=== PATIENT | male | born 2000 | race Caucasian/White ===

== ENCOUNTER 2022-05-08 14:50 | Emergency (ER) | payer OTHER ==
[2022-05-08] MEDS ORDERED: HYDROmorphone 0.5 MG/0.5 ML Syringe IM ONE (16:44)
== END 2022-05-08 18:30 | disposition home or self-care (01) ==
LOC: JD.ED 14:50
DX: S82.54XA Nondisplaced fracture of medial malleolus of right tibia, initial encounter for closed fracture (principal); W17.89XA Other fall from one level to another, initial encounter; Y99.0 Civilian activity done for income or pay
CPT/HCPCS: 29515; 73610-26-RT; 73610-RT; 73630-26-RT; 73630-RT; 73700-26-RT; 73700-RT; 96372; 99283; 99283-25; J1170